=== PATIENT | female | born 1960 | race Caucasian/White ===

== ENCOUNTER 2017-07-08 14:42 | Emergency (ER) | payer OTHER ==
[~2017-07-08] VITALS: Ht 152.4 cm; Wt 91.6 kg
[2017-07-08 14:46] VITALS: Ht 152.4 cm; Wt 91.6 kg
[2017-07-08 19:36] VITALS: BP 136/89
== END 2017-07-08 19:36 | disposition home or self-care (01) ==
LOC: ED 14:42
DX: H93.11 Tinnitus, right ear (principal); M79.641 Pain in right hand